=== PATIENT | female | born 1960 | race Caucasian/White ===

== ENCOUNTER 2017-07-22 18:33 | Emergency (ER) | payer MEDICARE ==
[~2017-07-22] VITALS: Ht 162.6 cm; Wt 56.7 kg
[~2017-07-22 18:33] MED LIST: GABA300C10 PO; IBUP200C5 PO; PARO40TA3 PO; PROP10TA PO; WARF1TAB PO
[2017-07-22] MEDS ORDERED: PROPOFOL 10 MG/ML, 20ML IVPush ONE ×2 (19:00→23:00)
[2017-07-22] MEDS ORDERED: SODIUM CHLORIDE FLUSH 10ML SYR IVF ONE (19:00)
[2017-07-22] MEDS ORDERED: SODIUM CHLORIDE 0.9% 1,000ML IVBOLUS ONE (19:00)
[2017-07-22] MEDS ORDERED: MIDAZOLAM 1 MG/ML, 2ML IVPush ONE (19:30)
[2017-07-22] MEDS ORDERED: MIDAZOLAM 1 MG/ML, 5ML ONE (19:51)
[2017-07-22] MEDS ORDERED: PROPOFOL 10 MG/ML, 20ML ONE ×2 (20:14→23:35)
[2017-07-23] MEDS ORDERED: LORazepam 1MG TABLET PO ONE
[2017-07-23] MEDS ORDERED: LORazepam 2 MG/ML, 1ML IVPush ONE (01:00)
[2017-07-23] MEDS ORDERED: LORazepam 2 MG/ML, 1ML ONE (02:36)
[2017-07-23 03:07] VITALS: BP 153/91
== END 2017-07-23 03:08 | disposition home or self-care (01) ==
LOC: ED 18:42
DX: S03.01XA Dislocation of jaw, right side, initial encounter (principal); E11.9 Type 2 diabetes mellitus without complications; Z86.73 Personal history of transient ischemic attack (TIA), and cerebral infarction without residual deficits; X58.XXXA Exposure to other specified factors, initial encounter; Y93.89 Activity, other specified; Y92.89 Other specified places as the place of occurrence of the external cause; Y99.8 Other external cause status
CPT/HCPCS: 21480; 96361; 96374; 96375; 99152; 99153; 99285; J2060; J2250; J2704; J7030